=== PATIENT | male | born 1945 | race Caucasian/White ===

== ENCOUNTER 2017-12-10 03:30 | Inpatient (IN) | payer OTHER ==
[~2017-12-10] VITALS: Ht 185.4 cm; Wt 146.9 kg
[2017-12-10 03:52] LABS: BASOPHILS # (AUTO) 0.06 x10^3/uL (0-0.1); BASOPHILS % (AUTO) 0 % (0-1); EOSINOPHILS # (AUTO) 0.37 x10^3/uL (0-0.4); EOSINOPHILS % (AUTO) 3 % (1-7); LYMPHOCYTES # (AUTO) 3.62 x10^3/uL (1-3.4); LYMPHOCYTES % (AUTO) 26 % (22-44); MD NO; MEAN CORPUSCULAR HEMOGLOBIN 31.8 pg (27.5-34.5); MEAN CORPUSCULAR VOLUME 96.6 fL (81-97); MEAN PLATELET VOLUME 9.8 fL (7.4-10.4); MONOCYTES # (AUTO) 1.28 x10^3/uL (0.2-0.8); MONOCYTES % (AUTO) 9 % (2-9); NEUTROPHILS # (AUTO) 8.86 x10^3/uL (1.8-6.8); NEUTROPHILS % (AUTO) 63 % (42-75); PLATELET COUNT 168 x10^3/uL (130-400); RED BLOOD COUNT 5.51 x10^6/uL (4.38-5.82); RED CELL DISTRIBUTION WIDTH 14.4 % (9.4-14.8)
[2017-12-10] MEDS ORDERED: METOPROLOL 1 MG/ML, 5ML IVPush ONE (04:00)
[2017-12-10] MEDS ORDERED: SODIUM CHLORIDE FLUSH 10ML SYR IVF ONE (04:00)
[2017-12-10 04:04] LABS: INTERNATIONAL NORMALIZED RATIO 2.82 (0.93-1.1); PROTHROMBIN TIME 28.5 Seconds (9.6-11.5)
[2017-12-10 04:05] LABS: ALANINE AMINOTRANSFERASE 23 U/L (12-78); ALBUMIN 3.3 g/dL (3.4-5.0); ANION GAP 12 mmol/L (5-15); CALCIUM 9.1 mg/dL (8.5-10.1); CHLORIDE 95 mmol/L (98-107); CREATININE 9.88 mg/dL (0.7-1.3)
[2017-12-10] MEDS ORDERED: METOPROLOL 1 MG/ML, 5ML ONE (04:06)
[2017-12-10 04:09] LABS: ALKALINE PHOSPHATASE 93 U/L (45-117); BILIRUBIN,TOTAL 0.6 mg/dL (0.2-1.0); TOTAL PROTEIN 7.7 g/dL (6.4-8.2); TROPONIN I 0.059 ng/mL (0.000-0.045)
[2017-12-10] MEDS ORDERED: FURO-93 PO (04:31)
[2017-12-10] MEDS ORDERED: METO-282 PO (04:32)
[2017-12-10] MEDS ORDERED: INSU100I11 SQ (04:33)
[2017-12-10 05:15] VITALS: BP 111/78
[2017-12-10] MEDS ORDERED: INSU100V8 SQ (05:20)
[2017-12-10] MEDS ORDERED: POTA20TA89 PO (05:24)
[2017-12-10] MEDS ORDERED: FURO20TA3 PO (05:24)
[2017-12-10] MEDS ORDERED: ACETAMINOPHEN 325 MG TABLET PO PRN (05:30)
[2017-12-10] MEDS ORDERED: BISACODYL 10 MG SUPP PR PRN (05:30)
[2017-12-10] MEDS ORDERED: ONDANSETRON ODT 4 MG PO PRN (05:30)
[2017-12-10] MEDS ORDERED: LABETALOL 5MG/ML, 20ML IVPush PRN (05:30)
[2017-12-10] MEDS ORDERED: ONDANSETRON 2MG/ML, 2ML IVPush PRN (05:30)
[2017-12-10] MEDS ORDERED: PROMETHAZINE 25 MG/ML, 1ML IM PRN (05:30)
[2017-12-10] MEDS ORDERED: HYDROcodone/APAP 5/325 TABLET PO PRN (05:30)
[2017-12-10] MEDS ORDERED: POLYETHYLENE GLYCOL 17 GM PACKET PO PRN (05:30)
[2017-12-10] MEDS ORDERED: METOPROLOL 1 MG/ML, 5ML IVPush PRN (05:30)
[2017-12-10] MEDS ORDERED: DOCUSATE 100 MG CAPSULE PO PRN (05:30)
[2017-12-10] MEDS ORDERED: HEPARIN 5,000 UNITS/ML, 1ML SQ SCH (05:30)
[2017-12-10] MEDS ORDERED: hydrALAzine 20 MG/ML, 1ML IVPush PRN (05:30)
[2017-12-10] MEDS: METOPROLOL TARTRATE 25 MG TABLET PO SCH ×3 (06:02→23:53)
[2017-12-10 06:10] LABS: FREE T4 (FREE THYROXINE) 1.49 ng/dL (0.76-1.46); THYROID STIMULATING HORMONE 0.896 mIU/L (0.358-3.740)
[2017-12-10 06:28] LABS: HEMOGLOBIN A1C 7.7 % (4.2-6.3)
[2017-12-10] MEDS ORDERED: WARF2TAB PO (06:29)
[2017-12-10] MEDS ORDERED: WARF1TAB PO (06:29)
[2017-12-10] MEDS: INSULIN LISPRO 100 UNITS/ML, PEN SQ-INSULIN SCH ×4 (07:00→23:52)
[2017-12-10 07:18] VITALS: BP 99/70
[2017-12-10] MEDS: INSULIN GLARGINE 100 UNITS/ML, PEN SQ-INSULIN SCH ×2 (09:42→23:53)
[2017-12-10 09:49] LABS: TROPONIN I 0.042 ng/mL (0.000-0.045)
[2017-12-10 12:14] LABS: CULTURE INDICATED? YES; MICROSCOPIC INDICATED
[2017-12-10 13:15] VITALS: BP 113/67
[2017-12-10] MEDS: CEFTRIAXONE PMX 1GM/50ML 50 ML IV SCH (14:46)
[2017-12-10] MEDS ORDERED: ALBU90AE INH (15:30)
[2017-12-10] MEDS ORDERED: CALC200T3 PO (15:31)
[2017-12-10] MEDS ORDERED: SODI56GE PO (15:31)
[2017-12-10] MEDS ORDERED: CAPS42.510 TP (15:31)
[2017-12-10] MEDS ORDERED: CYAN500L4 PO (15:31)
[2017-12-10] MEDS ORDERED: CALC0.25 PO (15:31)
[2017-12-10] MEDS ORDERED: [UNRECOGNIZED DRUG - CODE] INH (15:31)
[2017-12-10] MEDS ORDERED: CETI-299 PO (15:31)
[2017-12-10] MEDS: CAPSAICIN CRM 0.025%, 60GM TP SCH ×2 (16:00→23:53)
[2017-12-10] MEDS: ALBUTEROL SULFATE 2.5 MG/3 ML NEB SCH ×2 (16:00→20:00)
[2017-12-10] MEDS ORDERED: CALCIUM CARBONATE 500 MG TABLET PO PRN (16:30)
[2017-12-10] MEDS: CALCIUM CARBONATE 500 MG TABLET PO SCH ×2 (17:00→17:26)
[2017-12-10] MEDS: CALCITRIOL 0.25 MCG CAPSULE PO SCH (17:25)
[2017-12-10] MEDS ORDERED: WARFARIN 2 MG TABLET PO-COUM ONE (18:00)
[2017-12-10 23:43] VITALS: BP 124/85
[2017-12-10] MEDS: SODIUM FLUORIDE PO SCH (23:52)
[2017-12-11] MEDS: ALBUTEROL SULFATE 2.5 MG/3 ML NEB SCH ×2 (02:29)
[2017-12-11 05:06] LABS: BASOPHILS # (AUTO) 0.04 x10^3/uL (0-0.1); BASOPHILS % (AUTO) 0 % (0-1); EOSINOPHILS # (AUTO) 0.28 x10^3/uL (0-0.4); EOSINOPHILS % (AUTO) 3 % (1-7); LYMPHOCYTES # (AUTO) 2.14 x10^3/uL (1-3.4); LYMPHOCYTES % (AUTO) 25 % (22-44); MD NO; MEAN CORPUSCULAR HEMOGLOBIN 32.3 pg (27.5-34.5); MEAN CORPUSCULAR HGB CONC 33.7 g/dL (33.2-36.2); MEAN CORPUSCULAR VOLUME 95.9 fL (81-97); MEAN PLATELET VOLUME 10.1 fL (7.4-10.4); MONOCYTES # (AUTO) 0.95 x10^3/uL (0.2-0.8); MONOCYTES % (AUTO) 11 % (2-9); NEUTROPHILS # (AUTO) 5.21 x10^3/uL (1.8-6.8); NEUTROPHILS % (AUTO) 61 % (42-75); PLATELET COUNT 135 x10^3/uL (130-400); RED BLOOD COUNT 5.14 x10^6/uL (4.38-5.82); RED CELL DISTRIBUTION WIDTH 14.5 % (9.4-14.8)
[2017-12-11 05:21] LABS: ALANINE AMINOTRANSFERASE 20 U/L (12-78); ANION GAP 11 mmol/L (5-15); CALCIUM 8.4 mg/dL (8.5-10.1); CHLORIDE 97 mmol/L (98-107); CHOLESTEROL, TOTAL 138 mg/dL (140-239); CREATININE 7.95 mg/dL (0.7-1.3); TRIGLYCERIDES 315 mg/dL (50-200); VLDL CHOLESTEROL 63 mg/dL (0-25)
[2017-12-11 05:23] LABS: ALKALINE PHOSPHATASE 85 U/L (45-117); BILIRUBIN,TOTAL 0.7 mg/dL (0.2-1.0); HDL CHOL % 17 % (26-37); HDL CHOLESTEROL (DIRECT) 23 mg/dL (40-60); LDL CHOLESTEROL,CALCULATED 52 mg/dL (54-169); LDL/HDL RATIO 2.3 (0.5-3.0); TOTAL PROTEIN 6.9 g/dL (6.4-8.2)
[2017-12-11] MEDS ORDERED: ALBUTEROL SULFATE 2.5 MG/3 ML NEB PRN (06:30)
[2017-12-11 07:19] VITALS: BP 97/66
[2017-12-11 08:24] LABS: INTERNATIONAL NORMALIZED RATIO 2.75 (0.93-1.1); PROTHROMBIN TIME 27.8 Seconds (9.6-11.5)
[2017-12-11] MEDS ORDERED: NACL INH SCH (09:00)
[2017-12-11] MEDS ORDERED: [UNRECOGNIZED DRUG - OTHER] INH SCH (09:00)
[2017-12-11] MEDS ORDERED: TRIAMCINOLONE ACETON INH SCH (09:00)
[2017-12-11] MEDS: CAPSAICIN CRM 0.025%, 60GM TP SCH ×3 (09:00→20:49)
[2017-12-11] MEDS: CYANOCOBALAMIN 1,000 MCG TABLET PO SCH (09:43)
[2017-12-11] MEDS: METOPROLOL TARTRATE 25 MG TABLET PO SCH (09:43)
[2017-12-11] MEDS: INSULIN GLARGINE 100 UNITS/ML, PEN SQ-INSULIN SCH ×2 (09:44→20:49)
[2017-12-11] MEDS: CALCIUM CARBONATE 500 MG TABLET PO SCH ×3 (09:44→17:54)
[2017-12-11] MEDS: INSULIN LISPRO 100 UNITS/ML, PEN SQ-INSULIN SCH ×4 (09:44→20:49)
[2017-12-11] MEDS ORDERED: RANI150C PO (12:11)
[2017-12-11] MEDS ORDERED: TADA2.5T PO (12:11)
[2017-12-11] MEDS ORDERED: CETI10TA32 PO (12:11)
[2017-12-11] MEDS ORDERED: OXYC5TAB2 PO (12:11)
[2017-12-11] MEDS ORDERED: METO100T7 PO (12:11)
[2017-12-11] MEDS ORDERED: MAGN400T36 PO (12:11)
[2017-12-11] MEDS ORDERED: FOLI0.8T33 PO (12:11)
[2017-12-11] MEDS ORDERED: VANCOMYCIN PER PHARMACY MC PRN (12:30)
[2017-12-11] MEDS ORDERED: PHARMACOKINETIC MONITORING MC PRN (13:00)
[2017-12-11] MEDS ORDERED: VANCOMYCIN 2,100 MG in SODIUM CHLORIDE 0.9% 500 ML IV ONE (13:00)
[2017-12-11] MEDS ORDERED: PHARMACOKINETIC CONSULTATION MC ONE (13:00)
[2017-12-11 13:19] VITALS: BP 91/63
[2017-12-11] MEDS: CEFTRIAXONE PMX 1GM/50ML 50 ML IV SCH (13:37)
[2017-12-11] MEDS ORDERED: WARFARIN 3 MG TABLET PO-COUM ONE (18:00)
[2017-12-11 19:15] VITALS: BP 109/73
[2017-12-11 20:42] VITALS: BP 117/87
[2017-12-11] MEDS: METOPROLOL TARTRATE 50 MG TABLET PO SCH (20:48)
[2017-12-11] MEDS: SODIUM FLUORIDE PO SCH (20:49)
[2017-12-11 22:22] VITALS: BP 123/77
[2017-12-12 02:00] VITALS: BP 121/70
[2017-12-12 05:40] LABS: BASOPHILS # (AUTO) 0.03 x10^3/uL (0-0.1); BASOPHILS % (AUTO) 0 % (0-1); EOSINOPHILS # (AUTO) 0.29 x10^3/uL (0-0.4); EOSINOPHILS % (AUTO) 3 % (1-7); LYMPHOCYTES # (AUTO) 1.85 x10^3/uL (1-3.4); LYMPHOCYTES % (AUTO) 20 % (22-44); MD NO; MEAN CORPUSCULAR HEMOGLOBIN 32.6 pg (27.5-34.5); MEAN CORPUSCULAR HGB CONC 33.7 g/dL (33.2-36.2); MEAN CORPUSCULAR VOLUME 96.6 fL (81-97); MEAN PLATELET VOLUME 9.9 fL (7.4-10.4); MONOCYTES # (AUTO) 1.03 x10^3/uL (0.2-0.8); MONOCYTES % (AUTO) 11 % (2-9); NEUTROPHILS # (AUTO) 5.93 x10^3/uL (1.8-6.8); NEUTROPHILS % (AUTO) 65 % (42-75); PLATELET COUNT 137 x10^3/uL (130-400); RED CELL DISTRIBUTION WIDTH 14.4 % (9.4-14.8)
[2017-12-12 05:48] LABS: INTERNATIONAL NORMALIZED RATIO 2.51 (0.93-1.1); PROTHROMBIN TIME 25.4 Seconds (9.6-11.5)
[2017-12-12 06:01] LABS: ANION GAP 13 mmol/L (5-15); CALCIUM 8.7 mg/dL (8.5-10.1); CHLORIDE 100 mmol/L (98-107); CREATININE 8.65 mg/dL (0.7-1.3)
[2017-12-12 06:55] VITALS: BP 121/80
[2017-12-12] MEDS: INSULIN LISPRO 100 UNITS/ML, PEN SQ-INSULIN SCH ×4 (07:00→20:27)
[2017-12-12] MEDS: CAPSAICIN CRM 0.025%, 60GM TP SCH ×3 (07:35→20:13)
[2017-12-12] MEDS: CYANOCOBALAMIN 1,000 MCG TABLET PO SCH (08:29)
[2017-12-12] MEDS: METOPROLOL TARTRATE 50 MG TABLET PO SCH ×2 (08:29→20:12)
[2017-12-12] MEDS: CALCIUM CARBONATE 500 MG TABLET PO SCH ×3 (08:29→18:07)
[2017-12-12] MEDS: CALCITRIOL 0.25 MCG CAPSULE PO SCH (08:29)
[2017-12-12] MEDS: INSULIN GLARGINE 100 UNITS/ML, PEN SQ-INSULIN SCH ×2 (08:30→20:27)
[2017-12-12 12:01] VITALS: BP 112/70
[2017-12-12] MEDS: CEFTRIAXONE PMX 1GM/50ML 50 ML IV SCH (13:58)
[2017-12-12] MEDS ORDERED: WARFARIN 2 MG TABLET PO-COUM ONE (18:00)
[2017-12-12 20:06] VITALS: BP 115/71
[2017-12-12] MEDS: SODIUM FLUORIDE PO SCH (20:12)
[2017-12-13 00:15] VITALS: BP 139/88
[2017-12-13 05:21] LABS: BASOPHILS # (AUTO) 0.04 x10^3/uL (0-0.1); BASOPHILS % (AUTO) 0 % (0-1); EOSINOPHILS # (AUTO) 0.35 x10^3/uL (0-0.4); EOSINOPHILS % (AUTO) 4 % (1-7); LYMPHOCYTES # (AUTO) 2.31 x10^3/uL (1-3.4); LYMPHOCYTES % (AUTO) 27 % (22-44); MD NO; MEAN CORPUSCULAR HEMOGLOBIN 32.4 pg (27.5-34.5); MEAN CORPUSCULAR HGB CONC 33.7 g/dL (33.2-36.2); MEAN CORPUSCULAR VOLUME 96.4 fL (81-97); MEAN PLATELET VOLUME 9.8 fL (7.4-10.4); MONOCYTES # (AUTO) 0.97 x10^3/uL (0.2-0.8); MONOCYTES % (AUTO) 11 % (2-9); NEUTROPHILS # (AUTO) 4.99 x10^3/uL (1.8-6.8); NEUTROPHILS % (AUTO) 58 % (42-75); PLATELET COUNT 155 x10^3/uL (130-400); RED BLOOD COUNT 4.94 x10^6/uL (4.38-5.82); RED CELL DISTRIBUTION WIDTH 14.2 % (9.4-14.8)
[2017-12-13 05:26] LABS: ANION GAP 10 mmol/L (5-15); CALCIUM 9.6 mg/dL (8.5-10.1); CHLORIDE 99 mmol/L (98-107)
[2017-12-13 05:29] LABS: CREATININE 9.61 mg/dL (0.7-1.3); VANCOMYCIN,RANDOM 17.7 mcg/mL
[2017-12-13 05:47] LABS: INTERNATIONAL NORMALIZED RATIO 2.16 (0.93-1.1); PROTHROMBIN TIME 22.1 Seconds (9.6-11.5)
[2017-12-13] MEDS ORDERED: PHARMACY MAY ADJ FOR RENAL FX MC PRN (07:00)
[2017-12-13] MEDS: INSULIN GLARGINE 100 UNITS/ML, PEN SQ-INSULIN SCH (08:36)
[2017-12-13] MEDS: INSULIN LISPRO 100 UNITS/ML, PEN SQ-INSULIN SCH ×4 (08:37→21:51)
[2017-12-13 09:00] VITALS: BP 116/78
[2017-12-13] MEDS: CAPSAICIN CRM 0.025%, 60GM TP SCH ×3 (09:00→21:00)
[2017-12-13] MEDS ORDERED: INSULIN GLARGINE 100 UNITS/ML, PEN SQ-INSULIN SCH (09:00)
[2017-12-13] MEDS: AMOXICILLIN 250 MG CAPSULE PO SCH ×2 (10:19→21:00)
[2017-12-13] MEDS: CYANOCOBALAMIN 1,000 MCG TABLET PO SCH (10:19)
[2017-12-13] MEDS: METOPROLOL TARTRATE 50 MG TABLET PO SCH ×2 (10:19→21:50)
[2017-12-13] MEDS: CALCIUM CARBONATE 500 MG TABLET PO SCH ×3 (10:19→16:01)
[2017-12-13] MEDS: DIGOXIN 0.125 MG TABLET PO SCH (10:59)
[2017-12-13 15:33] VITALS: BP 124/75
[2017-12-13] MEDS ORDERED: WARFARIN 2.5 MG TABLET PO-COUM SCH (18:00)
[2017-12-13] MEDS: GENTAMICIN CRM 0.1%, 30GM TP PRN (18:30)
[2017-12-13 20:00] VITALS: BP 136/69
[2017-12-13] MEDS: SODIUM FLUORIDE PO SCH (21:00)
[2017-12-13 21:47] VITALS: BP 122/85
[2017-12-14 00:09] VITALS: BP 119/78
[2017-12-14 05:36] LABS: INTERNATIONAL NORMALIZED RATIO 1.9 (0.93-1.1); PROTHROMBIN TIME 19.5 Seconds (9.6-11.5)
[2017-12-14 07:45] VITALS: BP 109/73
[2017-12-14] MEDS: CAPSAICIN CRM 0.025%, 60GM TP SCH ×3 (08:07→21:00)
[2017-12-14] MEDS: INSULIN GLARGINE 100 UNITS/ML, PEN SQ-INSULIN SCH (08:11)
[2017-12-14] MEDS: INSULIN LISPRO 100 UNITS/ML, PEN SQ-INSULIN SCH ×4 (08:12→21:57)
[2017-12-14] MEDS: METOPROLOL TARTRATE 50 MG TABLET PO SCH ×2 (08:37→21:56)
[2017-12-14] MEDS: CYANOCOBALAMIN 1,000 MCG TABLET PO SCH (08:38)
[2017-12-14] MEDS: CALCIUM CARBONATE 500 MG TABLET PO SCH ×3 (08:39→17:20)
[2017-12-14] MEDS: CALCITRIOL 0.25 MCG CAPSULE PO SCH (08:39)
[2017-12-14] MEDS ORDERED: AMOXICILLIN 500 MG CAPSULE ONE (11:30)
[2017-12-14] MEDS: AMOXICILLIN 250 MG CAPSULE PO SCH ×2 (11:58→21:00)
[2017-12-14 15:59] VITALS: BP 113/62
[2017-12-14] MEDS: HEPARIN 5,000 UNITS/ML, 1ML SQ SCH (17:20)
[2017-12-14] MEDS: GENTAMICIN CRM 0.1%, 30GM TP PRN (17:30)
[2017-12-14 17:45] VITALS: BP 120/76
[2017-12-14 19:33] VITALS: BP 120/86
[2017-12-14] MEDS: SODIUM FLUORIDE PO SCH (21:00)
[2017-12-15 01:11] VITALS: BP 122/81
[2017-12-15] MEDS: HEPARIN 5,000 UNITS/ML, 1ML SQ SCH ×3 (02:34→17:14)
[2017-12-15 05:22] LABS: BASOPHILS # (AUTO) 0.05 x10^3/uL (0-0.1); BASOPHILS % (AUTO) 1 % (0-1); EOSINOPHILS # (AUTO) 0.36 x10^3/uL (0-0.4); EOSINOPHILS % (AUTO) 5 % (1-7); LYMPHOCYTES # (AUTO) 1.74 x10^3/uL (1-3.4); LYMPHOCYTES % (AUTO) 23 % (22-44); MD NO; MEAN CORPUSCULAR HEMOGLOBIN 32.6 pg (27.5-34.5); MEAN CORPUSCULAR HGB CONC 33.7 g/dL (33.2-36.2); MEAN CORPUSCULAR VOLUME 96.7 fL (81-97); MEAN PLATELET VOLUME 9.6 fL (7.4-10.4); MONOCYTES % (AUTO) 10 % (2-9); NEUTROPHILS # (AUTO) 4.73 x10^3/uL (1.8-6.8); NEUTROPHILS % (AUTO) 62 % (42-75); PLATELET COUNT 152 x10^3/uL (130-400); RED BLOOD COUNT 4.81 x10^6/uL (4.38-5.82); RED CELL DISTRIBUTION WIDTH 14.3 % (9.4-14.8)
[2017-12-15 05:28] LABS: INTERNATIONAL NORMALIZED RATIO 1.46 (0.93-1.1); PROTHROMBIN TIME 15.1 Seconds (9.6-11.5)
[2017-12-15 05:32] LABS: ANION GAP 13 mmol/L (5-15); CALCIUM 9.5 mg/dL (8.5-10.1); CHLORIDE 98 mmol/L (98-107); CREATININE 9.08 mg/dL (0.7-1.3)
[2017-12-15 07:30] VITALS: BP 129/76
[2017-12-15] MEDS: INSULIN LISPRO 100 UNITS/ML, PEN SQ-INSULIN SCH ×4 (08:33→20:41)
[2017-12-15] MEDS: CALCIUM CARBONATE 500 MG TABLET PO SCH ×3 (08:34→17:13)
[2017-12-15] MEDS: INSULIN GLARGINE 100 UNITS/ML, PEN SQ-INSULIN SCH ×2 (08:34→20:41)
[2017-12-15] MEDS: METOPROLOL TARTRATE 50 MG TABLET PO SCH (08:35)
[2017-12-15] MEDS: CYANOCOBALAMIN 1,000 MCG TABLET PO SCH (08:35)
[2017-12-15] MEDS: AMOXICILLIN 250 MG CAPSULE PO SCH ×2 (08:35→20:32)
[2017-12-15] MEDS: DIGOXIN 0.125 MG TABLET PO SCH (08:35)
[2017-12-15] MEDS: CAPSAICIN CRM 0.025%, 60GM TP SCH ×3 (08:36→20:32)
[2017-12-15] MEDS: FUROSEMIDE 40 MG/4 ML IV SCH (12:45)
[2017-12-15 13:15] VITALS: BP 147/77
[2017-12-15] MEDS: CARVEDILOL 25 MG TABLET PO SCH (17:14)
[2017-12-15] MEDS: SODIUM FLUORIDE PO SCH (20:32)
[2017-12-15 20:51] VITALS: BP 113/73
[2017-12-16 01:21] VITALS: BP 112/71
[2017-12-16] MEDS: HEPARIN 5,000 UNITS/ML, 1ML SQ SCH ×3 (01:28→18:11)
[2017-12-16 05:36] LABS: BASOPHILS # (AUTO) 0.04 x10^3/uL (0-0.1); BASOPHILS % (AUTO) 1 % (0-1); EOSINOPHILS # (AUTO) 0.32 x10^3/uL (0-0.4); EOSINOPHILS % (AUTO) 5 % (1-7); LYMPHOCYTES # (AUTO) 1.36 x10^3/uL (1-3.4); LYMPHOCYTES % (AUTO) 20 % (22-44); MD NO; MEAN CORPUSCULAR HEMOGLOBIN 32.4 pg (27.5-34.5); MEAN CORPUSCULAR HGB CONC 33.8 g/dL (33.2-36.2); MEAN CORPUSCULAR VOLUME 95.6 fL (81-97); MONOCYTES # (AUTO) 0.72 x10^3/uL (0.2-0.8); MONOCYTES % (AUTO) 11 % (2-9); NEUTROPHILS # (AUTO) 4.21 x10^3/uL (1.8-6.8); NEUTROPHILS % (AUTO) 63 % (42-75); PLATELET COUNT 150 x10^3/uL (130-400); RED CELL DISTRIBUTION WIDTH 13.9 % (9.4-14.8)
[2017-12-16 05:44] LABS: INTERNATIONAL NORMALIZED RATIO 1.3 (0.93-1.1); PROTHROMBIN TIME 13.4 Seconds (9.6-11.5)
[2017-12-16 05:51] LABS: ANION GAP 14 mmol/L (5-15); CALCIUM 9.7 mg/dL (8.5-10.1); CHLORIDE 99 mmol/L (98-107); CREATININE 8.74 mg/dL (0.7-1.3)
[2017-12-16] MEDS: CARVEDILOL 25 MG TABLET PO SCH ×2 (05:57→18:11)
[2017-12-16 07:45] VITALS: BP 103/65
[2017-12-16] MEDS: AMOXICILLIN 250 MG CAPSULE PO SCH ×2 (08:20→21:45)
[2017-12-16] MEDS: INSULIN LISPRO 100 UNITS/ML, PEN SQ-INSULIN SCH ×4 (08:20→21:47)
[2017-12-16] MEDS: CYANOCOBALAMIN 1,000 MCG TABLET PO SCH (08:20)
[2017-12-16] MEDS: FUROSEMIDE 40 MG/4 ML IV SCH (08:21)
[2017-12-16] MEDS: CALCIUM CARBONATE 500 MG TABLET PO SCH ×3 (08:21→18:10)
[2017-12-16] MEDS: LOSARTAN 25MG TABLET PO SCH (08:21)
[2017-12-16] MEDS: INSULIN GLARGINE 100 UNITS/ML, PEN SQ-INSULIN SCH ×2 (08:22→21:46)
[2017-12-16] MEDS: CAPSAICIN CRM 0.025%, 60GM TP SCH ×3 (09:00→21:00)
[2017-12-16 14:00] VITALS: BP 117/86
[2017-12-16 20:00] VITALS: BP 113/73
[2017-12-16] MEDS: SODIUM FLUORIDE PO SCH (21:00)
[2017-12-17] VITALS (8 sets, daily range): BP systolic 82–116; BP diastolic 54–79
[2017-12-17] MEDS: HEPARIN 5,000 UNITS/ML, 1ML SQ SCH (01:16)
[2017-12-17] MEDS: CARVEDILOL 25 MG TABLET PO SCH ×2 (05:39→18:14)
[2017-12-17 05:43] LABS: INTERNATIONAL NORMALIZED RATIO 1.12 (0.93-1.1); PROTHROMBIN TIME 11.6 Seconds (9.6-11.5)
[2017-12-17] MEDS ORDERED: VANCOMYCIN PMX 1GM/200ML 200 ML IVPB SCH (07:30)
[2017-12-17] MEDS: CALCIUM CARBONATE 500 MG TABLET PO SCH ×3 (08:00→17:07)
[2017-12-17] MEDS: SODIUM CHLORIDE 0.9% 1,000 ML IV SCH ×3 (08:08→21:22)
[2017-12-17] MEDS: INSULIN GLARGINE 100 UNITS/ML, PEN SQ-INSULIN SCH ×2 (08:27→19:39)
[2017-12-17] MEDS: FUROSEMIDE 40 MG/4 ML IV SCH (08:27)
[2017-12-17] MEDS: INSULIN LISPRO 100 UNITS/ML, PEN SQ-INSULIN SCH ×4 (08:28→19:39)
[2017-12-17] MEDS: CALCITRIOL 0.25 MCG CAPSULE PO SCH (10:16)
[2017-12-17] MEDS: AMOXICILLIN 250 MG CAPSULE PO SCH ×2 (10:17→22:06)
[2017-12-17] MEDS: DIGOXIN 0.125 MG TABLET PO SCH (10:17)
[2017-12-17] MEDS: CAPSAICIN CRM 0.025%, 60GM TP SCH ×3 (10:18→21:00)
[2017-12-17] MEDS ORDERED: VANCOMYCIN 500 MG ONE (13:17)
[2017-12-17] MEDS ORDERED: VANCOMYCIN PMX 1GM/200ML 200 ML ONE (13:17)
[2017-12-17] MEDS ORDERED: LIDOCAINE/PF 1%, 30ML ONE (13:17)
[2017-12-17] MEDS ORDERED: DEXAMETHASONE 4 MG/ML, 1ML ONE (13:37)
[2017-12-17] MEDS ORDERED: VASOPRESSIN 20 UNIT/ML, 1ML ONE (13:37)
[2017-12-17] MEDS ORDERED: PROPOFOL 10 MG/ML, 20ML ONE (13:37)
[2017-12-17] MEDS ORDERED: ROCURONIUM 10 MG/ML,10ML ONE (13:37)
[2017-12-17] MEDS ORDERED: ONDANSETRON 2MG/ML, 2ML ONE (13:37)
[2017-12-17] MEDS ORDERED: LORazepam 2 MG/ML, 1ML IVPush PRN (15:00)
[2017-12-17] MEDS ORDERED: HOLD MEDICATION MC PRN (15:00)
[2017-12-17] MEDS ORDERED: HYDROmorphone 1 MG/ML, 1ML IV PRN (15:00)
[2017-12-17] MEDS ORDERED: HYDROcodone/APAP 5/325 TABLET PO PRN (15:00)
[2017-12-17] MEDS ORDERED: MIDAZOLAM 1 MG/ML, 2ML IV PRN (15:00)
[2017-12-17] MEDS ORDERED: ALBUTEROL SULFATE 2.5 MG/3 ML NPPB PRN (15:00)
[2017-12-17] MEDS ORDERED: ONDANSETRON 2MG/ML, 2ML IV PRN (15:00)
[2017-12-17] MEDS ORDERED: FENTANYL PF 100 MCG/2ML IV PRN (15:00)
[2017-12-17] MEDS ORDERED: hydrALAzine 20 MG/ML, 1ML IV PRN (15:00)
[2017-12-17] MEDS ORDERED: PROMETHAZINE 25 MG/ML, 1ML IV PRN (15:00)
[2017-12-17] MEDS ORDERED: MEPERIDINE/PF 25MG/0.5ML IVPush PRN (15:00)
[2017-12-17] MEDS ORDERED: PROMETHAZINE 12.5 MG SUPP PR PRN (15:00)
[2017-12-17] MEDS ORDERED: EPHEDRINE 50 MG/ML, 1ML IVPush PRN (15:00)
[2017-12-17] MEDS ORDERED: OXYcodone 5 MG/5 ML ORAL.SOL UDC PO PRN (15:00)
[2017-12-17] MEDS ORDERED: ONDANSETRON ODT 8 MG PO PRN (15:00)
[2017-12-17] MEDS ORDERED: LABETALOL 5MG/ML, 20ML IV PRN (15:00)
[2017-12-17] MEDS: LOSARTAN 25MG TABLET PO SCH (16:30)
[2017-12-17] MEDS: SODIUM FLUORIDE PO SCH (19:53)
[2017-12-17] MEDS: GENTAMICIN CRM 0.1%, 30GM TP PRN (20:00)
[2017-12-17] MEDS: CYANOCOBALAMIN 1,000 MCG TABLET PO SCH (21:21)
[2017-12-18] VITALS (9 sets, daily range): BP systolic 94–144; BP diastolic 64–99
[2017-12-18 05:28] LABS: INTERNATIONAL NORMALIZED RATIO 1.07 (0.93-1.1); PROTHROMBIN TIME 11.1 Seconds (9.6-11.5)
[2017-12-18] MEDS: SODIUM CHLORIDE 0.9% 1,000 ML IV SCH ×2 (07:22→12:39)
[2017-12-18] MEDS: CALCIUM CARBONATE 500 MG TABLET PO SCH ×3 (08:15→17:47)
[2017-12-18] MEDS: AMOXICILLIN 250 MG CAPSULE PO SCH ×2 (08:15→21:00)
[2017-12-18] MEDS: LOSARTAN 25MG TABLET PO SCH (08:16)
[2017-12-18] MEDS: CARVEDILOL 25 MG TABLET PO SCH ×2 (08:16→17:47)
[2017-12-18] MEDS: CYANOCOBALAMIN 1,000 MCG TABLET PO SCH (08:16)
[2017-12-18] MEDS: FUROSEMIDE 40 MG/4 ML IV SCH (08:17)
[2017-12-18] MEDS: INSULIN GLARGINE 100 UNITS/ML, PEN SQ-INSULIN SCH ×2 (08:18→21:59)
[2017-12-18] MEDS: CAPSAICIN CRM 0.025%, 60GM TP SCH ×3 (08:19→21:00)
[2017-12-18] MEDS: INSULIN LISPRO 100 UNITS/ML, PEN SQ-INSULIN SCH ×4 (08:19→21:59)
[2017-12-18] MEDS ORDERED: INSULIN LISPRO 100 UNITS/ML, PEN SQ-INSULIN ONE (12:00)
[2017-12-18] MEDS: GENTAMICIN CRM 0.1%, 30GM TP PRN (20:45)
[2017-12-18] MEDS: SODIUM FLUORIDE PO SCH (21:00)
[2017-12-19] VITALS (10 sets, daily range): BP systolic 112–158; BP diastolic 51–105
[2017-12-19] MEDS: CARVEDILOL 25 MG TABLET PO SCH ×2 (06:05→17:25)
[2017-12-19 06:45] LABS: BASOPHILS # (AUTO) 0.04 x10^3/uL (0-0.1); BASOPHILS % (AUTO) 1 % (0-1); EOSINOPHILS # (AUTO) 0.29 x10^3/uL (0-0.4); EOSINOPHILS % (AUTO) 3 % (1-7); LYMPHOCYTES # (AUTO) 1.28 x10^3/uL (1-3.4); LYMPHOCYTES % (AUTO) 14 % (22-44); MD NO; MEAN CORPUSCULAR HEMOGLOBIN 32.5 pg (27.5-34.5); MEAN CORPUSCULAR HGB CONC 33.5 g/dL (33.2-36.2); MEAN CORPUSCULAR VOLUME 97.2 fL (81-97); MEAN PLATELET VOLUME 9.6 fL (7.4-10.4); MONOCYTES % (AUTO) 9 % (2-9); NEUTROPHILS # (AUTO) 6.55 x10^3/uL (1.8-6.8); NEUTROPHILS % (AUTO) 73 % (42-75); PLATELET COUNT 157 x10^3/uL (130-400); RED BLOOD COUNT 4.54 x10^6/uL (4.38-5.82); RED CELL DISTRIBUTION WIDTH 14.8 % (9.4-14.8)
[2017-12-19 06:53] LABS: INTERNATIONAL NORMALIZED RATIO 1.05 (0.93-1.1); PROTHROMBIN TIME 10.9 Seconds (9.6-11.5)
[2017-12-19 06:56] LABS: ANION GAP 12 mmol/L (5-15); CALCIUM 9.8 mg/dL (8.5-10.1); CHLORIDE 99 mmol/L (98-107); CREATININE 8.31 mg/dL (0.7-1.3)
[2017-12-19] MEDS: LOSARTAN 25MG TABLET PO SCH (08:36)
[2017-12-19] MEDS: CALCIUM CARBONATE 500 MG TABLET PO SCH ×3 (08:36→17:26)
[2017-12-19] MEDS: CYANOCOBALAMIN 1,000 MCG TABLET PO SCH (08:36)
[2017-12-19] MEDS: AMOXICILLIN 250 MG CAPSULE PO SCH ×2 (08:37→21:38)
[2017-12-19] MEDS: CALCITRIOL 0.25 MCG CAPSULE PO SCH (08:37)
[2017-12-19] MEDS: CAPSAICIN CRM 0.025%, 60GM TP SCH ×3 (08:38→21:38)
[2017-12-19] MEDS: INSULIN LISPRO 100 UNITS/ML, PEN SQ-INSULIN SCH ×4 (08:38→21:39)
[2017-12-19] MEDS: INSULIN GLARGINE 100 UNITS/ML, PEN SQ-INSULIN SCH ×2 (08:38→21:39)
[2017-12-19] MEDS: FUROSEMIDE 40 MG/4 ML IV SCH (08:45)
[2017-12-19] MEDS: DIGOXIN 0.125 MG TABLET PO SCH (08:45)
[2017-12-19] MEDS ORDERED: AMIODARONE 150 MG in DEXTROSE 5% 100 ML IV ONE (09:00)
[2017-12-19] MEDS ORDERED: WARFARIN 2 MG TABLET PO-COUM ONE (15:00)
[2017-12-19] MEDS: AMIODARONE 200 MG TABLET PO SCH ×2 (15:28→23:10)
[2017-12-19] MEDS: SODIUM FLUORIDE PO SCH (21:38)
[2017-12-20 02:14] VITALS: BP 112/66
[2017-12-20 06:05] LABS: INTERNATIONAL NORMALIZED RATIO 1.04 (0.93-1.1); PROTHROMBIN TIME 10.8 Seconds (9.6-11.5)
[2017-12-20 06:24] VITALS: BP 110/55
[2017-12-20] MEDS: CARVEDILOL 25 MG TABLET PO SCH (06:29)
[2017-12-20 07:21] VITALS: BP 114/59
[2017-12-20] MEDS: INSULIN LISPRO 100 UNITS/ML, PEN SQ-INSULIN SCH ×2 (08:40→11:20)
[2017-12-20] MEDS: INSULIN GLARGINE 100 UNITS/ML, PEN SQ-INSULIN SCH (08:41)
[2017-12-20] MEDS: AMIODARONE 200 MG TABLET PO SCH (08:41)
[2017-12-20] MEDS: FUROSEMIDE 40 MG/4 ML IV SCH (08:41)
[2017-12-20] MEDS: LOSARTAN 25MG TABLET PO SCH (08:41)
[2017-12-20] MEDS: AMOXICILLIN 250 MG CAPSULE PO SCH (08:42)
[2017-12-20] MEDS: CAPSAICIN CRM 0.025%, 60GM TP SCH (08:43)
[2017-12-20] MEDS: CYANOCOBALAMIN 1,000 MCG TABLET PO SCH (08:43)
[2017-12-20] MEDS: CALCIUM CARBONATE 500 MG TABLET PO SCH ×2 (08:48→12:46)
[2017-12-20] MEDS ORDERED: CALC-666 PO (11:10)
[2017-12-20] MEDS ORDERED: CARV25TA12 PO (11:10)
[2017-12-20] MEDS ORDERED: AMIO200T42 PO (11:10)
[2017-12-20] MEDS ORDERED: INSU100I11 SQ-INSULIN (11:10)
[2017-12-20] MEDS ORDERED: LOSA25TA2 PO (11:10)
[2017-12-20] MEDS ORDERED: INSU100I11 SQ (11:15)
[2017-12-20 12:50] VITALS: BP 150/95
[2017-12-20] MEDS ORDERED: WARFARIN 3 MG TABLET PO-COUM ONE (18:00)
== END 2017-12-20 14:58 | disposition home or self-care (01) | DRG 853 ==
LOC: ED 03:55 → EDIP 04:26 → 5SO 05:27 → 4EST 12-11 14:53 → 5SO 12-17 16:03 → DCLOUNGE 12-20 14:46
PROVIDERS: ADMIT Internal Medicine; ATTEND Internal Medicine
PROC: 3E1M39Z Irrigation of Peritoneal Cavity using Dialysate, Percutaneous Approach (ICD-10-PCS; 2017-12-10)
PROC: 3E1M39Z Irrigation of Peritoneal Cavity using Dialysate, Percutaneous Approach (ICD-10-PCS; 2017-12-11)
PROC: 3E1M39Z Irrigation of Peritoneal Cavity using Dialysate, Percutaneous Approach (ICD-10-PCS; 2017-12-12)
PROC: 3E1M39Z Irrigation of Peritoneal Cavity using Dialysate, Percutaneous Approach (ICD-10-PCS; 2017-12-13)
PROC: 3E1M39Z Irrigation of Peritoneal Cavity using Dialysate, Percutaneous Approach (ICD-10-PCS; 2017-12-14)
PROC: 3E1M39Z Irrigation of Peritoneal Cavity using Dialysate, Percutaneous Approach (ICD-10-PCS; 2017-12-15)
PROC: 3E1M39Z Irrigation of Peritoneal Cavity using Dialysate, Percutaneous Approach (ICD-10-PCS; 2017-12-16)
PROC: 02HK3JZ Insertion of Pacemaker Lead into Right Ventricle, Percutaneous Approach (ICD-10-PCS; 2017-12-17)
PROC: 3E1M39Z Irrigation of Peritoneal Cavity using Dialysate, Percutaneous Approach (ICD-10-PCS; 2017-12-17)
PROC: 0JH604Z Insertion of Pacemaker, Single Chamber into Chest Subcutaneous Tissue and Fascia, Open Approach (ICD-10-PCS; principal; 2017-12-17 14:00)
PROC: 3E1M39Z Irrigation of Peritoneal Cavity using Dialysate, Percutaneous Approach (ICD-10-PCS; 2017-12-18)
DX: A41.9 Sepsis, unspecified organism (principal); N18.6 End stage renal disease; I13.2 Hypertensive heart and chronic kidney disease with heart failure and with stage 5 chronic kidney disease, or end stage renal disease; D68.69 Other thrombophilia; E44.1 Mild protein-calorie malnutrition; I50.22 Chronic systolic (congestive) heart failure; N25.81 Secondary hyperparathyroidism of renal origin; N39.0 Urinary tract infection, site not specified; Z68.41 Body mass index [BMI] 40.0-44.9, adult; M48.52XA Collapsed vertebra, not elsewhere classified, cervical region, initial encounter for fracture; M48.56XA Collapsed vertebra, not elsewhere classified, lumbar region, initial encounter for fracture; E87.1 Hypo-osmolality and hyponatremia; I42.9 Cardiomyopathy, unspecified; I48.2 Chronic atrial fibrillation; E87.5 Hyperkalemia; E11.22 Type 2 diabetes mellitus with diabetic chronic kidney disease; B95.2 Enterococcus as the cause of diseases classified elsewhere; D63.1 Anemia in chronic kidney disease; D75.1 Secondary polycythemia; E66.01 Morbid (severe) obesity due to excess calories; I44.7 Left bundle-branch block, unspecified; I49.5 Sick sinus syndrome; I87.2 Venous insufficiency (chronic) (peripheral); J44.9 Chronic obstructive pulmonary disease, unspecified; N25.0 Renal osteodystrophy; Z79.01 Long term (current) use of anticoagulants; Z79.899 Other long term (current) drug therapy; Z85.528 Personal history of other malignant neoplasm of kidney; Z87.891 Personal history of nicotine dependence; Z88.8 Allergy status to other drugs, medicaments and biological substances; Z90.5 Acquired absence of kidney; Z99.2 Dependence on renal dialysis; Z88.6 Allergy status to analgesic agent; Z88.0 Allergy status to penicillin; Z88.2 Allergy status to sulfonamides; Z90.49 Acquired absence of other specified parts of digestive tract; I95.9 Hypotension, unspecified
CPT/HCPCS: 33207; 36415; 71045; 80048; 80053; 80061; 80069; 80202; 81001; 82962; 83036; 83735; 83880; 84439; 84443; 84484; 85025; 85610; 85730; 86704; 86706; 86803; 87077; 87086; 87186; 87340; 87521; 93005; 96374; C1769; C1779; C1786; C1892; C1894; C8929; G0378; J0696; J1100; J1644; J1940; J2405; J2704; J3370; J3490; Q9957; J0282; J1815; J7030; J7040

== ENCOUNTER 2017-12-27 13:23 | Observation (INO) | payer OTHER ==
[~2017-12-27] VITALS: Ht 185.4 cm; Wt 146.3 kg
[~2017-12-27 13:23] MED LIST: ALBU90AE INH; AMIO200T42 PO; CALC-666 PO; CALC0.25 PO; CALC200T3 PO; CAPS42.510 TP; CARV25TA12 PO; CETI-299 PO; CETI10TA32 PO; CYAN500L4 PO; FOLI0.8T33 PO; FURO-93 PO; FURO20TA3 PO; INSU100I11 SQ; INSU100I11 SQ-INSULIN; INSU100V8 SQ; LOSA25TA2 PO; MAGN400T36 PO; METO-282 PO; METO100T7 PO; OXYC5TAB2 PO; POTA20TA89 PO; RANI150C PO; SODI56GE PO; TADA2.5T PO; WARF1TAB PO; WARF2TAB PO; [UNRECOGNIZED DRUG - CODE] INH
[2017-12-27 13:47] LABS: BASOPHILS # (AUTO) 0.05 x10^3/uL (0-0.1); BASOPHILS % (AUTO) 1 % (0-1); EOSINOPHILS # (AUTO) 0.39 x10^3/uL (0-0.4); EOSINOPHILS % (AUTO) 4 % (1-7); LYMPHOCYTES # (AUTO) 1.95 x10^3/uL (1-3.4); LYMPHOCYTES % (AUTO) 19 % (22-44); MD NO; MEAN CORPUSCULAR HEMOGLOBIN 32.5 pg (27.5-34.5); MEAN CORPUSCULAR HGB CONC 34.1 g/dL (33.2-36.2); MEAN CORPUSCULAR VOLUME 95.2 fL (81-97); MEAN PLATELET VOLUME 9.1 fL (7.4-10.4); MONOCYTES # (AUTO) 0.93 x10^3/uL (0.2-0.8); MONOCYTES % (AUTO) 9 % (2-9); NEUTROPHILS # (AUTO) 6.77 x10^3/uL (1.8-6.8); NEUTROPHILS % (AUTO) 67 % (42-75); PLATELET COUNT 200 x10^3/uL (130-400); RED CELL DISTRIBUTION WIDTH 14.5 % (9.4-14.8)
[2017-12-27 13:56] LABS: INTERNATIONAL NORMALIZED RATIO 1.65 (0.93-1.1)
[2017-12-27 13:59] LABS: ALANINE AMINOTRANSFERASE 24 U/L (12-78); ANION GAP 13 mmol/L (5-15); CALCIUM 8.9 mg/dL (8.5-10.1); CHLORIDE 100 mmol/L (98-107)
[2017-12-27 14:04] LABS: ALKALINE PHOSPHATASE 107 U/L (45-117); BILIRUBIN,TOTAL 0.4 mg/dL (0.2-1.0); FREE T4 (FREE THYROXINE) 1.21 ng/dL (0.76-1.46); TOTAL PROTEIN 6.9 g/dL (6.4-8.2); TROPONIN I 0.062 ng/mL (0.000-0.045)
[2017-12-27] MEDS ORDERED: OXYCODONE HCL PO SCH (15:30)
[2017-12-27] MEDS ORDERED: GLUCAGON 1 MG IM PRN (15:30)
[2017-12-27] MEDS ORDERED: ACETAMINOPHEN 325 MG TABLET PO PRN (15:30)
[2017-12-27] MEDS ORDERED: NITROGLYCERIN 0.4 MG/SPRAY SL PRN (15:30)
[2017-12-27] MEDS ORDERED: DEXTROSE 4 GM TAB.CHEW PO PRN (15:30)
[2017-12-27] MEDS ORDERED: NITROGLYCERIN 0.4 MG BOTTLE (25 TABS) SL PRN (15:30)
[2017-12-27] MEDS ORDERED: DOCUSATE 100 MG CAPSULE PO PRN (15:30)
[2017-12-27] MEDS ORDERED: ONDANSETRON 2MG/ML, 2ML IVPush PRN (15:30)
[2017-12-27] MEDS ORDERED: DEXTROSE 50%, 50ML SYRINGE IVPush PRN (15:30)
[2017-12-27] MEDS ORDERED: ONDANSETRON ODT 4 MG PO PRN (15:30)
[2017-12-27] MEDS ORDERED: CAPSAICIN TP SCH (16:00)
[2017-12-27] MEDS: INSULIN LISPRO 100 UNITS/ML, PEN SQ-INSULIN SCH ×2 (16:00→21:12)
[2017-12-27] MEDS ORDERED: OXYcodone IR 5MG TABLET PO PRN (16:00)
[2017-12-27] MEDS ORDERED: CALC500T PO (16:08)
[2017-12-27] MEDS ORDERED: GENT30OI2 TP (16:10)
[2017-12-27 17:22] LABS: MICROSCOPIC AUTO
[2017-12-27 17:23] LABS: CULTURE INDICATED? YES
[2017-12-27] MEDS ORDERED: PHARMACY MAY ADJ FOR RENAL FX MC PRN (17:30)
[2017-12-27 17:33] VITALS: BP 136/78
[2017-12-27] MEDS: CARVEDILOL 12.5 MG TABLET PO SCH (17:46)
[2017-12-27] MEDS: CALCIUM CARBONATE 500 MG TABLET PO SCH (17:46)
[2017-12-27] MEDS ORDERED: WARFARIN 2 MG TABLET PO-COUM ONE (18:00)
[2017-12-27] MEDS ORDERED: TEMPLATE NON-FORMULARY MED. (Carvedilol** 25 MG) PO SCH (18:00)
[2017-12-27 18:34] VITALS: BP 118/66
[2017-12-27 18:36] VITALS: BP 139/82
[2017-12-27 18:38] VITALS: BP 146/82
[2017-12-27 19:09] VITALS: BP 124/77
[2017-12-27 19:18] LABS: TROPONIN I 0.048 ng/mL (0.000-0.045)
[2017-12-27] MEDS: GENTAMICIN OINT 0.1% 15GM TP SCH (20:36)
[2017-12-27] MEDS ORDERED: FUROSEMIDE 20 MG TABLET PO SCH (21:00)
[2017-12-27 21:09] VITALS: BP 144/92
[2017-12-27] MEDS: FAMOTIDINE 20 MG TABLET PO SCH (21:12)
[2017-12-27] MEDS: INSULIN GLARGINE 100 UNITS/ML, PEN SQ-INSULIN SCH (21:12)
[2017-12-27] MEDS: AMIODARONE 200 MG TABLET PO SCH (21:12)
[2017-12-27] MEDS: SODIUM CHLORIDE FLUSH 10ML SYR IVF SCH (21:13)
[2017-12-28] VITALS (12 sets, daily range): BP systolic 88–139; BP diastolic 60–84
[2017-12-28 05:55] LABS: INTERNATIONAL NORMALIZED RATIO 1.84 (0.93-1.1); PROTHROMBIN TIME 18.9 Seconds (9.6-11.5)
[2017-12-28 05:57] LABS: BASOPHILS # (AUTO) 0.06 x10^3/uL (0-0.1); BASOPHILS % (AUTO) 1 % (0-1); EOSINOPHILS # (AUTO) 0.31 x10^3/uL (0-0.4); EOSINOPHILS % (AUTO) 3 % (1-7); LYMPHOCYTES # (AUTO) 1.83 x10^3/uL (1-3.4); LYMPHOCYTES % (AUTO) 20 % (22-44); MD NO; MEAN CORPUSCULAR HEMOGLOBIN 32.4 pg (27.5-34.5); MEAN CORPUSCULAR HGB CONC 33.6 g/dL (33.2-36.2); MEAN CORPUSCULAR VOLUME 96.4 fL (81-97); MEAN PLATELET VOLUME 9.5 fL (7.4-10.4); MONOCYTES # (AUTO) 0.82 x10^3/uL (0.2-0.8); MONOCYTES % (AUTO) 9 % (2-9); NEUTROPHILS # (AUTO) 6.11 x10^3/uL (1.8-6.8); NEUTROPHILS % (AUTO) 67 % (42-75); PLATELET COUNT 186 x10^3/uL (130-400); RED BLOOD COUNT 4.19 x10^6/uL (4.38-5.82); RED CELL DISTRIBUTION WIDTH 14.2 % (9.4-14.8)
[2017-12-28] MEDS: CARVEDILOL 12.5 MG TABLET PO SCH ×2 (05:57→17:30)
[2017-12-28] MEDS: CALCIUM CARBONATE 500 MG TABLET PO SCH ×3 (05:57→17:30)
[2017-12-28] MEDS: ASPIRIN 325 MG TABLET EC PO SCH (05:57)
[2017-12-28 05:59] LABS: ANION GAP 16 mmol/L (5-15); CALCIUM 8.7 mg/dL (8.5-10.1); CHLORIDE 100 mmol/L (98-107)
[2017-12-28] MEDS ORDERED: TEMPLATE NON-FORMULARY MED. (Potassium Chloride** 20 MEQ) PO SCH (09:00)
[2017-12-28] MEDS: TRIAMCINOLONE ACETON INH SCH (09:00)
[2017-12-28] MEDS: NACL INH SCH (09:00)
[2017-12-28] MEDS ORDERED: CALCITRIOL 0.25 MCG CAPSULE PO SCH (09:00)
[2017-12-28] MEDS: [UNRECOGNIZED DRUG - OTHER] INH SCH (09:00)
[2017-12-28] MEDS: INSULIN LISPRO 100 UNITS/ML, PEN SQ-INSULIN SCH ×4 (09:03→22:00)
[2017-12-28] MEDS: AMIODARONE 200 MG TABLET PO SCH ×2 (09:04→21:55)
[2017-12-28] MEDS: INSULIN GLARGINE 100 UNITS/ML, PEN SQ-INSULIN SCH ×2 (09:04→22:01)
[2017-12-28] MEDS: CYANOCOBALAMIN 1,000 MCG TABLET PO SCH (09:04)
[2017-12-28] MEDS: MAGNESIUM OXIDE 400 MG TABLET PO SCH (09:04)
[2017-12-28] MEDS: MULTIVITAMIN 1 TABLET PO SCH (09:04)
[2017-12-28] MEDS: SODIUM CHLORIDE FLUSH 10ML SYR IVF SCH ×2 (09:05→21:00)
[2017-12-28] MEDS ORDERED: WARFARIN 2 MG TABLET PO-COUM ONE (18:00)
[2017-12-28] MEDS: GENTAMICIN OINT 0.1% 15GM TP SCH (21:00)
[2017-12-28] MEDS: FAMOTIDINE 20 MG TABLET PO SCH (21:55)
[2017-12-29 00:44] VITALS: BP 117/58
[2017-12-29 04:30] VITALS: BP_SYST 105; BP_SYST 107; BP_SYST 109; BP_DIAS 60; BP_DIAS 62; BP_DIAS 70
[2017-12-29 05:56] LABS: BASOPHILS # (AUTO) 0.06 x10^3/uL (0-0.1); BASOPHILS % (AUTO) 1 % (0-1); EOSINOPHILS # (AUTO) 0.41 x10^3/uL (0-0.4); EOSINOPHILS % (AUTO) 5 % (1-7); LYMPHOCYTES % (AUTO) 21 % (22-44); MD NO; MEAN CORPUSCULAR HEMOGLOBIN 32.3 pg (27.5-34.5); MEAN CORPUSCULAR HGB CONC 33.4 g/dL (33.2-36.2); MEAN CORPUSCULAR VOLUME 96.8 fL (81-97); MEAN PLATELET VOLUME 9.3 fL (7.4-10.4); MONOCYTES # (AUTO) 0.85 x10^3/uL (0.2-0.8); MONOCYTES % (AUTO) 10 % (2-9); NEUTROPHILS # (AUTO) 5.69 x10^3/uL (1.8-6.8); NEUTROPHILS % (AUTO) 64 % (42-75); PLATELET COUNT 184 x10^3/uL (130-400); RED BLOOD COUNT 4.21 x10^6/uL (4.38-5.82); RED CELL DISTRIBUTION WIDTH 14.4 % (9.4-14.8)
[2017-12-29] MEDS: ASPIRIN 325 MG TABLET EC PO SCH (06:00)
[2017-12-29 06:02] LABS: INTERNATIONAL NORMALIZED RATIO 2.48 (0.93-1.1); PROTHROMBIN TIME 25.3 Seconds (9.6-11.5)
[2017-12-29 06:07] LABS: ALBUMIN 2.9 g/dL (3.4-5.0); ANION GAP 11 mmol/L (5-15); CALCIUM 8.8 mg/dL (8.5-10.1); CHLORIDE 100 mmol/L (98-107)
[2017-12-29 06:11] LABS: ALANINE AMINOTRANSFERASE 22 U/L (12-78); ALKALINE PHOSPHATASE 79 U/L (45-117); BILIRUBIN,TOTAL 0.5 mg/dL (0.2-1.0); TOTAL PROTEIN 6.4 g/dL (6.4-8.2)
[2017-12-29] MEDS: CARVEDILOL 12.5 MG TABLET PO SCH (06:11)
[2017-12-29] MEDS: CALCIUM CARBONATE 500 MG TABLET PO SCH ×3 (07:47→17:36)
[2017-12-29] MEDS: CYANOCOBALAMIN 1,000 MCG TABLET PO SCH (07:47)
[2017-12-29] MEDS: SODIUM CHLORIDE FLUSH 10ML SYR IVF SCH ×2 (07:48→21:00)
[2017-12-29] MEDS: MULTIVITAMIN 1 TABLET PO SCH (07:48)
[2017-12-29] MEDS: MAGNESIUM OXIDE 400 MG TABLET PO SCH (07:48)
[2017-12-29] MEDS: AMIODARONE 200 MG TABLET PO SCH ×2 (07:48→21:13)
[2017-12-29] MEDS: [UNRECOGNIZED DRUG - OTHER] INH SCH (07:50)
[2017-12-29] MEDS: INSULIN LISPRO 100 UNITS/ML, PEN SQ-INSULIN SCH ×4 (07:50→21:00)
[2017-12-29] MEDS: TRIAMCINOLONE ACETON INH SCH (07:50)
[2017-12-29] MEDS: NACL INH SCH (07:50)
[2017-12-29] MEDS: INSULIN GLARGINE 100 UNITS/ML, PEN SQ-INSULIN SCH ×2 (07:51→21:16)
[2017-12-29 08:00] VITALS: BP 103/66
[2017-12-29 08:01] VITALS: BP 123/76
[2017-12-29 08:02] VITALS: BP 137/83
[2017-12-29] MEDS ORDERED: WARFARIN 1 MG TABLET PO-COUM ONE (18:00)
[2017-12-29 18:46] VITALS: BP 135/78
[2017-12-29] MEDS: GENTAMICIN OINT 0.1% 15GM TP SCH (21:00)
[2017-12-29] MEDS: CARVEDILOL 3.125 MG TABLET PO SCH (21:13)
[2017-12-29] MEDS: FAMOTIDINE 20 MG TABLET PO SCH (21:13)
[2017-12-30 02:10] VITALS: BP 106/61
[2017-12-30] MEDS: CARVEDILOL 3.125 MG TABLET PO SCH (04:56)
[2017-12-30] MEDS: ASPIRIN 325 MG TABLET EC PO SCH (05:06)
[2017-12-30 05:21] LABS: INTERNATIONAL NORMALIZED RATIO 2.69 (0.93-1.1); PROTHROMBIN TIME 27.4 Seconds (9.6-11.5)
[2017-12-30 06:45] VITALS: BP 95/60
[2017-12-30] MEDS: INSULIN LISPRO 100 UNITS/ML, PEN SQ-INSULIN SCH ×2 (07:00→12:45)
[2017-12-30] MEDS: MULTIVITAMIN 1 TABLET PO SCH (07:57)
[2017-12-30] MEDS: MAGNESIUM OXIDE 400 MG TABLET PO SCH (07:57)
[2017-12-30] MEDS: AMIODARONE 200 MG TABLET PO SCH (07:58)
[2017-12-30] MEDS: [UNRECOGNIZED DRUG - OTHER] INH SCH (07:58)
[2017-12-30] MEDS: CALCIUM CARBONATE 500 MG TABLET PO SCH ×2 (07:58→11:54)
[2017-12-30] MEDS: SODIUM CHLORIDE FLUSH 10ML SYR IVF SCH (07:58)
[2017-12-30] MEDS: NACL INH SCH (07:58)
[2017-12-30] MEDS: CYANOCOBALAMIN 1,000 MCG TABLET PO SCH (07:58)
[2017-12-30] MEDS: TRIAMCINOLONE ACETON INH SCH (07:58)
[2017-12-30] MEDS: GENTAMICIN OINT 0.1% 15GM TP SCH (07:59)
[2017-12-30 08:30] LABS: ANION GAP 11 mmol/L (5-15); CALCIUM 8.9 mg/dL (8.5-10.1); CHLORIDE 97 mmol/L (98-107); CREATININE 9.26 mg/dL (0.7-1.3)
[2017-12-30] MEDS: INSULIN GLARGINE 100 UNITS/ML, PEN SQ-INSULIN SCH (09:36)
[2017-12-30 11:54] VITALS: BP 128/78
[2017-12-30] MEDS ORDERED: ASPI-650 PO (13:53)
[2017-12-30] MEDS ORDERED: AMIO200T42 PO (13:53)
[2017-12-30] MEDS ORDERED: CARV3.1212 PO (13:53)
[2017-12-30] MEDS ORDERED: WARFARIN 1 MG TABLET PO-COUM ONE ×2 (14:43→18:00)
[2017-12-30] MEDS ORDERED: LOSA25TA6 PO (15:18)
== END 2017-12-30 15:51 | disposition home or self-care (01) ==
LOC: ED 14:45 → INTOOBSV 15:08 → EDIP 15:08 → 5SO 15:35
PROVIDERS: ADMIT Hospitalist; ATTEND Hospitalist
DX: R53.1 Weakness (principal); R55 Syncope and collapse; I13.2 Hypertensive heart and chronic kidney disease with heart failure and with stage 5 chronic kidney disease, or end stage renal disease; I50.20 Unspecified systolic (congestive) heart failure; N18.6 End stage renal disease; E66.01 Morbid (severe) obesity due to excess calories; E11.22 Type 2 diabetes mellitus with diabetic chronic kidney disease; D63.1 Anemia in chronic kidney disease; D68.59 Other primary thrombophilia; I25.2 Old myocardial infarction; I48.91 Unspecified atrial fibrillation; I49.5 Sick sinus syndrome; I87.2 Venous insufficiency (chronic) (peripheral); I95.1 Orthostatic hypotension; J44.9 Chronic obstructive pulmonary disease, unspecified; N25.0 Renal osteodystrophy; Z90.5 Acquired absence of kidney; Z95.0 Presence of cardiac pacemaker; Z99.2 Dependence on renal dialysis; Z79.899 Other long term (current) drug therapy; Z88.0 Allergy status to penicillin; Z88.2 Allergy status to sulfonamides; Z88.8 Allergy status to other drugs, medicaments and biological substances
CPT/HCPCS: 36415; 71045; 80048; 80053; 81001; 82306; 82533; 82962; 83735; 83880; 83970; 84100; 84439; 84443; 84484; 85025; 85610; 87086; 93005; 96372; 99285; G0378; J1815

== ENCOUNTER 2019-07-15 07:58 | Observation (INO) | payer MEDICARE, OTHER ==
[~2019-07-15] VITALS: Ht 185.4 cm; Wt 135.0 kg
[~2019-07-15 07:58] MED LIST changes: +ASPI-650 PO; +CALC500T29 PO; -CAPS42.510 TP; +CAPS42.513 TP; +CARV3.1212 PO; +GENT30OI2 TP; +LOSA25TA25 PO
[2019-07-15] MEDS ORDERED: SODIUM CHLORIDE 0.9% 1,000 ML IV SCH (08:26)
[2019-07-15] MEDS ORDERED: ONDANSETRON 2MG/ML, 2ML IVPush PRN ×2 (08:30→15:30)
[2019-07-15 08:38] VITALS: BP 137/77
[2019-07-15] MEDS ORDERED: AMIO100T4 PO (09:05)
[2019-07-15] MEDS ORDERED: APIX5TAB PO (09:08)
[2019-07-15] MEDS ORDERED: INSU100V8 SQ (09:10)
[2019-07-15] MEDS ORDERED: INSU100C5 SQ-INSULIN (09:10)
[2019-07-15] MEDS ORDERED: FURO20TA3 PO (09:13)
[2019-07-15] MEDS ORDERED: metoprolol (09:13)
[2019-07-15] MEDS ORDERED: ALBU8.5H8 INH (09:16)
[2019-07-15] MEDS ORDERED: TIOT18CA INH (09:16)
[2019-07-15] MEDS ORDERED: OXYC5SOL8 PO (09:17)
[2019-07-15] MEDS ORDERED: SEVE800T7 PO (09:19)
[2019-07-15 09:40] LABS: BASOPHILS # (AUTO) 0.05 x10^3/uL (0-0.1); BASOPHILS % (AUTO) 1 % (0-1); EOSINOPHILS # (AUTO) 0.53 x10^3/uL (0-0.4); EOSINOPHILS % (AUTO) 4 % (1-7); LYMPHOCYTES # (AUTO) 2.25 x10^3/uL (1-3.4); LYMPHOCYTES % (AUTO) 19 % (22-44); MD NO; MEAN CORPUSCULAR HEMOGLOBIN 33.6 pg (27.5-34.5); MEAN CORPUSCULAR HGB CONC 33.4 g/dL (33.2-36.2); MEAN CORPUSCULAR VOLUME 100.6 fL (81-97); MONOCYTES # (AUTO) 1.04 x10^3/uL (0.2-0.8); MONOCYTES % (AUTO) 9 % (2-9); NEUTROPHILS % (AUTO) 68 % (42-75); PLATELET COUNT 216 x10^3/uL (130-400); RED BLOOD COUNT 3.86 x10^6/uL (4.38-5.82); RED CELL DISTRIBUTION WIDTH 14.8 % (9.4-14.8)
[2019-07-15 09:45] LABS: ALANINE AMINOTRANSFERASE 17 U/L (12-78); ALBUMIN 3.2 g/dL (3.4-5.0); ANION GAP 11 mmol/L (5-15); CALCIUM 8.9 mg/dL (8.5-10.1); CHLORIDE 97 mmol/L (98-107)
[2019-07-15 09:48] LABS: ALKALINE PHOSPHATASE 147 U/L (45-117); BILIRUBIN,TOTAL 0.5 mg/dL (0.2-1.0); TOTAL PROTEIN 7.6 g/dL (6.4-8.2)
[2019-07-15] MEDS ORDERED: MIDAZOLAM 1 MG/ML, 5ML ONE (11:00)
[2019-07-15] MEDS ORDERED: FENTANYL PF 100 MCG/2ML ONE (11:00)
[2019-07-15] MEDS ORDERED: LIDOCAINE 2%, 20ML ONE (11:00)
[2019-07-15] MEDS ORDERED: ALBUTEROL SULFATE INH SCH (12:00)
[2019-07-15] MEDS: SEVELAMER CARBONATE 800MG TAB PO SCH ×2 (12:00→17:46)
[2019-07-15] MEDS ORDERED: OXYcodone IR 5MG TABLET PO SCH (12:00)
[2019-07-15 13:25] VITALS: BP 108/71
[2019-07-15] MEDS ORDERED: ZOLPIDEM 5MG TABLET PO PRN (15:30)
[2019-07-15] MEDS ORDERED: TEMPLATE NON-FORMULARY MED. (Insulin Aspart** (Novolog**) 0 UNITS) SC SCH (16:00)
[2019-07-15] MEDS ORDERED: ACETAMINOPHEN 325 MG TABLET PO PRN (16:00)
[2019-07-15] MEDS ORDERED: OXYcodone IR 5MG TABLET PO PRN (16:30)
[2019-07-15 20:24] VITALS: BP 115/72
[2019-07-15] MEDS: APIXABAN 5 MG TABLET PO SCH (20:29)
[2019-07-15] MEDS: INSULIN LISPRO 100 UNITS/ML, PEN SQ-INSULIN SCH (21:00)
[2019-07-15] MEDS ORDERED: INSULIN GLARGINE 100 UNITS/ML, PEN SQ-INSULIN SCH (21:00)
[2019-07-15] MEDS ORDERED: CALCIUM CARBONATE 500 MG TAB.CHEW PO PRN (22:30)
[2019-07-16] MEDS ORDERED: ALBUTEROL SULFATE 2.5 MG/3 ML NPPB PRN (00:30)
[2019-07-16 01:36] VITALS: BP 108/62
[2019-07-16 07:25] LABS: BASOPHILS # (AUTO) 0.03 x10^3/uL (0-0.1); BASOPHILS % (AUTO) 0 % (0-1); EOSINOPHILS # (AUTO) 0.28 x10^3/uL (0-0.4); EOSINOPHILS % (AUTO) 2 % (1-7); LYMPHOCYTES # (AUTO) 1.57 x10^3/uL (1-3.4); LYMPHOCYTES % (AUTO) 13 % (22-44); MD NO; MEAN CORPUSCULAR HEMOGLOBIN 33.2 pg (27.5-34.5); MEAN CORPUSCULAR HGB CONC 32.6 g/dL (33.2-36.2); MEAN CORPUSCULAR VOLUME 101.9 fL (81-97); MEAN PLATELET VOLUME 8.3 fL (7.4-10.4); MONOCYTES # (AUTO) 0.91 x10^3/uL (0.2-0.8); MONOCYTES % (AUTO) 7 % (2-9); NEUTROPHILS # (AUTO) 9.84 x10^3/uL (1.8-6.8); NEUTROPHILS % (AUTO) 78 % (42-75); PLATELET COUNT 212 x10^3/uL (130-400); RED BLOOD COUNT 3.66 x10^6/uL (4.38-5.82); RED CELL DISTRIBUTION WIDTH 14.5 % (9.4-14.8)
[2019-07-16 07:36] LABS: ALBUMIN 3.1 g/dL (3.4-5.0); ANION GAP 14 mmol/L (5-15); CALCIUM 8.8 mg/dL (8.5-10.1); CHLORIDE 95 mmol/L (98-107)
[2019-07-16] MEDS: SEVELAMER CARBONATE 800MG TAB PO SCH (07:54)
[2019-07-16] MEDS: INSULIN LISPRO 100 UNITS/ML, PEN SQ-INSULIN SCH ×2 (07:54→11:24)
[2019-07-16] MEDS: APIXABAN 5 MG TABLET PO SCH (07:55)
[2019-07-16 09:00] VITALS: BP 101/65
[2019-07-16] MEDS ORDERED: MAGNESIUM OXIDE 400 MG TABLET PO SCH (09:00)
[2019-07-16] MEDS ORDERED: FOLIC ACID PO SCH (09:00)
[2019-07-16] MEDS ORDERED: FUROSEMIDE 80 MG TABLET PO SCH (09:00)
[2019-07-16] MEDS ORDERED: VIT BCOMP C PO SCH (09:00)
[2019-07-16] MEDS ORDERED: CYANOCOBALAMIN 1,000 MCG TABLET PO SCH (09:00)
== END 2019-07-16 11:40 | disposition home or self-care (01) ==
LOC: CACL 07:58 → 5SO 12:13 → CACL 15:33 → 5SO 15:33 → DCLOUNGE 07-16 11:29
PROVIDERS: ADMIT Internal Medicine Cardiovascular Disease; ATTEND Internal Medicine Cardiovascular Disease
DX: I48.20 Chronic atrial fibrillation, unspecified (principal); I12.0 Hypertensive chronic kidney disease with stage 5 chronic kidney disease or end stage renal disease; N18.6 End stage renal disease; E11.22 Type 2 diabetes mellitus with diabetic chronic kidney disease; D68.59 Other primary thrombophilia; D63.1 Anemia in chronic kidney disease; Z99.2 Dependence on renal dialysis; N25.0 Renal osteodystrophy; I44.2 Atrioventricular block, complete; I87.2 Venous insufficiency (chronic) (peripheral); Z88.5 Allergy status to narcotic agent; Z88.0 Allergy status to penicillin; Z88.2 Allergy status to sulfonamides; Z90.5 Acquired absence of kidney
CPT/HCPCS: 36415; 71046; 80053; 80069; 82962; 85025; 86705; 86706; 87340; 93650; 94640; 96374; 99156; 99157; C1894; C2630; G0378; J1815; J2250; J2405; J3010; J3490; J7613; 90945